=== PATIENT | female | born 1990 | race African-American/Black ===

== ENCOUNTER 2021-05-26 10:22 | Emergency (ER) | payer MEDICAID, SELFPAY ==
[2021-05-26 10:39] VITALS: BP 114/80; PULSE 90; RESP 18; TEMP 36.4; O2SAT 99; BMI 29.0
--- NOTE | 2021-05-26 10:48 | ED.EXTPRO ---
HPI - Extremity Problem General Chief complaint: Extremity Problem Stated complaint: L ARM NUMBNESS Time Seen by Provider: 05/26/21 10:48 Source: patient Mode of arrival: ambulatory Limitations: no limitations History of Present Illness HPI Narrative: pain in axilla and numbness into arm only on the left. patient does sleep with the one year old. No fever no redness no swelling. No neck pain MD Complaint: extremity pain Onset (ago): week(s) (2) Pain Consistency: intermittent Location: left Exacerbating factors: other (lifting) Related Data Previous Rx's Medication Instructions Recorded naproxen [Naprosyn] 500 mg PO BID #20 tab 05/26/21 Allergies Allergy/AdvReac Type Severity Reaction Status Date / Time No Known Allergies Allergy Unverified 07/20/20 17:14 bee strings Allergy Unknown anaphylaxis Uncoded 06/06/20 00:00 Review of Systems Constitutional: Constitutional: Reports no additional constitutional complaints Eyes: Eyes: Reports no additional eye complaints ENT: Denies dizziness Cardiovascular: Cardiovascular: Reports no additional cardiovascular complaints Respiratory: Respiratory: Reports as per HPI Gastrointestinal: Gastrointestinal: Reports no additional gastrointestinal complaints Genitourinary: Genitourinary: Reports no additional female genitourinary complaints Musculoskeletal: Musculoskeletal: Reports no additional musculoskeletal complaints Integumentary/Breasts: Skin/Breast: Denies rash Neurologic: Reports system reviewed and no additional complaints, except as documented, Denies dizziness and Denies Sensory deficit (Neuro) Psychiatric: Psychiatric: Denies anxiety PMFSH Past Medical History Medical History No known health problems Family History Family History Mother Family hx of hypertension Hx of cardiovascular disorder Hx of myocardial infarction Maternal Grandmother Hx of diabetes mellitus Hx of cardiovascular disorder Paternal Grandmother History of dementia Maternal Aunt Hx of diabetes mellitus History of breast cancer in female Social History Social History Alcohol intake: never Smoked in Last 30 Days: No Use of substances other than those prescribed or required for medical reasons: No Advance Directives: Yes Advance Directives Information Provided: No Advance Directives on File: No Patient : No Physical Exam Vital Signs: Vital Signs: Last Vital Signs Temp 97.6 F 07/24/21 10:39 Pulse 90 05/26/21 10:39 Resp 18 05/26/21 10:39 BP 114/80 05/26/21 10:39 Pulse Ox 99 05/26/21 10:39 Body Mass Index 29.0 Const: General: healthy appearing Nutritional Appearance: average body habitus Orientation/consciousness: oriented to person and patient oriented x3 Limitations: no limitations HENMT: Head: Yes normal to inspection Ears: external ears normal General nose exam: Normal external nose present Mouth: Normal oral and palatal mucosa present and oropharynx normal Throat: Yes posterior oropharynx normal Eyes: General: appearance normal, both eyes and all related structures Neck: Other: supple Neck: Yes normal visual inspection Chest: Chest palpation & inspection: normal inspection of the chest Resp: Auscultation: clear to auscultation bilaterally Cardio: Jugular venous distension: no JVD Rate: regular rate Rhythm: regular rhythm Heart sounds: S1 normal heart sound present and S2 normal heart sound present GI: Inspection: Yes normal to inspection Palpation (GI): Soft to palpation, nontender and No hepatosplenomegaly present Auscultation: normal bowel sounds : General: Yes no CVA tenderness Back/Spine/Pelvis: Back: no CVA tenderness Skin: General skin exam: no rashes or lesions noted Neuro: General: oriented to person and patient oriented x3 Cranial nerves: Yes CN's II-XII intact bilaterally Motor exam (neuro): 5/5 motor strength present throughout Sensory Exam: No Sensory deficit (Neuro) Extrem: Other: Pain with radiation down arm when palpating left axilla, no redness, no lymphadenopathy, no induration or fluctuance General: Yes normal to inspection Psych: Appearance: grossly normal Course Reevaluation(s) Reevaluation #1: patient with mild brachial plexus injury. Will start NSAIDs and dc home Time: 10:59 Discharge Plan Discharge Clinical Impression: Brachial plexus injury, left Qualifiers: Encounter type: initial encounter Qualified Code(s): S14.3XXA - Injury of brachial plexus, initial encounter Patient Disposition: Home, Self-Care Additional Instructions: return for swelling redness or worsening symptoms Prescriptions: New naproxen [Naprosyn] 500 mg tablet 500 mg PO BID Qty: 20 RF: 0 Referrals: Physician,Unknown [Primary Care Provider] - 1 week
== END 2021-05-26 11:04 | disposition home or self-care (01) ==
PROVIDERS: Emergency Provider Emergency Medicine
DX: S14.3XXA Injury of brachial plexus, initial encounter (principal); X58.XXXA Exposure to other specified factors, initial encounter; R20.0 Anesthesia of skin; Y93.9 Activity, unspecified; Y92.019 Unspecified place in single-family (private) house as the place of occurrence of the external cause; Y99.9 Unspecified external cause status
CPT/HCPCS: 99283; 99284

== ENCOUNTER 2021-07-03 23:59 | Emergency (ER) | payer MEDICAID, SELFPAY ==
[2021-07-04 00:06] VITALS: BP 134/92; PULSE 79; RESP 16; TEMP 36.4; O2SAT 99; BMI 28.2
--- NOTE | 2021-07-04 00:09 | ED_ITS ---
HPI - Fall General Chief Complaint: Fall Stated Complaint: Fall Source: patient Mode of arrival: ambulatory Limitations: no limitations History of Present Illness HPI Narrative: 30-year-old female with no significant past medical history presents with left-sided hip pain and right foot pain after slipping and falling. Stated that she was rushing, landed on her left hip and a brace to her right foot. She does not report hitting her head, losing consciousness, and denies any other symptoms at this time. complaint: fall Onset (ago): hour(s) (Within the hour of arrival) Fall from: standing Fall witnessed: no Place fall occurred: home Loss of consciousness: none Prolonged down time: no Symptoms prior to fall: none Context: tripped/slipped Location of injury - extremities: left: thigh and right: foot Severity: mild Severity scale (1-10): 4 Quality: burning and aching Associated symptoms (after fall): denies Related Data Previous Rx's Medication Instructions Recorded naproxen 500 mg tablet (Naprosyn) 500 mg PO BID #20 tab 05/26/21 cyclobenzaprine 10 mg tablet 10 mg PO TID PRN #10 tab 07/04/21 ibuprofen 600 mg tablet 600 mg PO Q6H PRN #30 tab 07/04/21 Allergies Allergy/AdvReac Type Severity Reaction Status Date / Time No Known Allergies Allergy Unverified 07/20/20 17:14 bee strings Allergy Unknown anaphylaxis Uncoded 06/06/20 00:00 Review of Systems Review of Systems: Constitutional: No Fever, No Chills ENT/Mouth: No Ear Pain, No Hoarseness, No sore throat Eyes: No Eye Pain, No Swelling, No Redness, No Foreign Body Cardiovascular: No Chest Pain, No SOB Respiratory: No Cough, No Dyspnea Gastrointestinal: No Nausea, No Vomiting, No Diarrhea, No abdominal Pain Genitourinary: No Dysuria, No Hematuria Musculoskeletal: positive left hip and right foot pain, No Myalgias, No Joint Swelling Skin: No Skin lacerations, No rash Neuro: No Weakness, No Numbness, No Paresthesias, No Loss of Consciousness, No Dizziness, No Headache Psych: No Anxiety/Panic, No Depression Heme/Lymph: no easy bruising, no Lymphadenopathy Endocrine: No Polyuria, No Polydipsia Yes all other systems are reviewed and are negative [facility] Past Medical History Attestation statement: The following information was validated with the patient. Source: old records reviewed Medical History No known health problems Family History Family History Mother Family hx of hypertension Hx of cardiovascular disorder Hx of myocardial infarction Maternal Grandmother Hx of diabetes mellitus Hx of cardiovascular disorder Paternal Grandmother History of dementia Maternal Aunt Hx of diabetes mellitus History of breast cancer in female Social History Social History Alcohol intake: never Advance Directives: No Patient : No Physical Exam Vital Signs: Vital Signs: Last Vital Signs Temp 97.6 F 07/04/21 00:06 Pulse 79 07/04/21 00:25 Resp 20 07/04/21 00:25 BP 120/76 07/04/21 00:25 Pulse Ox 99 07/04/21 00:25 Body Mass Index 28.2 Appearance: Alert. Oriented X3. No acute distress. Eyes: Pupils equal, round and reactive to light. ENT: Pharynx normal. Neck: Normal inspection. Neck supple. CVS: Normal heart rate and rhythm. Pulses normal. Respiratory: No respiratory distress. Breath sounds normal. Abdomen: Soft and nontender. Skin: Abrasion noted to the medial aspect of the right hallux, Skin warm and dry. Normal skin color. Normal skin turgor. Extremities: Full range of motion to all extremities. Minimal tenderness to palpation to the left hip, no abrasions, wounds, or ecchymosis noted. Strength 5/5, brisk capillary refill to all extremities. Neuro: No motor deficit. No sensory deficit. Cranial nerves 2-12 intact. Course Course Course Narrative: 30-year-old female presents with injury sustained from a slip and fall. Landed on her left hip, patient does have full range of motion and and has a well-balanced gait. Does have an abrasion to the right hallux, last Tdap was over 15 years ago. As patient does have full range of motion, no ecchymosis wounds or lesions to the hip, no crepitus, brisk capillary refill in strength 5/5, no indication for x-ray at this time. Does not meet the criteria for [place] ankle for ankle. No vertebral tenderness or step-offs noted. Full range of motion to upper extremities neck and spine. Will provide prescription for muscle relaxer for muscle spasm and Motrin. Patient verbalizes understanding of and agrees to plan of care discharge home. MDM - Fall MDM Narrative Medical decision making narrative: Musculoskeletal strain, hematoma Differential Diagnosis Differential diagnosis: Likely dislocation and fracture Medical Records Attestation: I reviewed the patient's medical records. Discharge Plan Discharge Clinical Impression: Contusion of left hip, Abrasion Patient Disposition: Home, Self-Care Instructions: Abrasion (ED), Hip Contusion (ED) Additional Instructions: You were evaluated for injury sustained from a fall. You have a left hip contusion and a right toe abrasion. We updated your Tdap vaccine. Please use cyclobenzaprine as needed for muscle spasms. This is a muscle relaxer and this medication can reduce reaction time, cause drowsiness, and increased risk for falls. Do not drive or operate machinery while taking this medication. Please use Motrin as needed for pain management. Follow-up with primary care physician as needed. Thank you for choosing this emergency department for evaluation. Please follow-up with primary care physician as needed. Return to the emergency department for any new, concerning, or worsening symptoms. Prescriptions: New ibuprofen 600 mg tablet 600 mg PO Q6H PRN (Reason: pain) Qty: 30 RF: 0 cyclobenzaprine 10 mg tablet 10 mg PO TID PRN (Reason: muscle spasm) Qty: 10 RF: 0 No Action naproxen [Naprosyn] 500 mg tablet 500 mg PO BID Qty: 20 RF: 0 Stand Alone Forms: Work/School Release
[2021-07-04 00:25] VITALS: BP 120/76; PULSE 79; RESP 20; O2SAT 99
[2021-07-04] MEDS: Ibuprofen 600 MG TABLET PO (00:28)
[2021-07-04] MEDS: Diphth,Pertus(ACell),Tet Adult 0.5 ML SYRINGE IM (00:31)
== END 2021-07-04 01:05 | disposition home or self-care (01) ==
PROVIDERS: Emergency Provider Internal Medicine; PCP Nurse Practitioner
DX: S70.01XA Contusion of right hip, initial encounter (principal); S90.411A Abrasion, right great toe, initial encounter; W01.0XXA Fall on same level from slipping, tripping and stumbling without subsequent striking against object, initial encounter; Y93.9 Activity, unspecified; Y92.019 Unspecified place in single-family (private) house as the place of occurrence of the external cause; Y99.9 Unspecified external cause status
CPT/HCPCS: 90471; 90715; 99284

== ENCOUNTER 2021-10-05 15:09 | Outpatient (REF) | payer MEDICAID, SELFPAY | END 2021-10-05 15:10 | disposition home or self-care (01) | LOC: HO.LAB 15:09 | PROVIDERS: PCP Nurse Practitioner; Visit Provider Internal Medicine | DX: Z20.822 Contact with and (suspected) exposure to COVID-19 (principal) | CPT/HCPCS: C9803; U0003; U0005 ==

== ENCOUNTER 2022-05-15 04:21 | Emergency (ER) | payer MEDICAID, SELFPAY ==
[2022-05-15 04:43] VITALS: BP 116/72; PULSE 72; RESP 16; TEMP 36.8; O2SAT 100; BMI 27.4
== END 2022-05-15 06:47 | disposition left against medical advice (07) ==
PROVIDERS: Emergency Provider Emergency Medicine
DX: M25.512 Pain in left shoulder (principal)
CPT/HCPCS: 99281

== ENCOUNTER 2022-08-25 07:42 | Emergency (ER) | payer MEDICAID, SELFPAY ==
--- NOTE | ~2022-08-25 | XR_ITS ---
EXAMINATION: XR SHOULDER, LEFT CLINICAL INFORMATION: Pain radiating down arm COMPARISON: None TECHNIQUE: Three views of the left shoulder. FINDINGS: The bones and soft tissues are normal. No fracture. Glenohumeral and acromioclavicular alignment is anatomic with normal joint space. No abnormal soft tissue calcifications. XR/XR shoulder LT min 2V IMPRESSION: No significant left shoulder abnormality appreciated.
[2022-08-25 07:45] VITALS: BP 142/82; PULSE 91; RESP 19; TEMP 36.6; O2SAT 98; BMI 25.8
--- NOTE | 2022-08-25 09:51 | ED_ITS ---
HPI - Extremity Injury (Upper) General Chief Complaint: Upper Respiratory Symptoms Stated Complaint: L shoulder pain rad down arm/pinched nerve? Time Seen by Provider: 08/25/22 09:21 Source: patient Mode of arrival: ambulatory Limitations: no limitations History of Present Illness HPI narrative: 31-year-old female presenting to the ER with complaints of intermittent left shoulder pain for the past 2 months after she had a work related injury. 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 She did not get evaluated that time. Although for the past 2 months she has been having intermittent pain went tingling going down the arm. She reports ?I believe I have a pinched nerve?. She reports it hurts in the scapular region as well. 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 She denies any headaches, neck pain, chest pain, shortness of breath, extremity edema, rashes, fevers, weakness or any other symptoms complaints or concerns at this time. complaint: injury to: left and shoulder Onset (ago): month(s) (2) Other injuries: none Place: work Severity: mild Relieving factors: none Exacerbating factors: movement of extremity Context: other (See above) Associated symptoms: other (Intermittent tingling) Related Data Previous Rx's Medication Instructions Recorded naproxen 500 mg tablet (Naprosyn) 500 mg PO BID #20 tabs 05/26/21 cyclobenzaprine 10 mg tablet 10 mg PO TID PRN muscle spasm #10 07/04/21 tabs ibuprofen 600 mg tablet 600 mg PO Q6H PRN pain #30 tabs 07/04/21 cyclobenzaprine 10 mg tablet 10 mg PO Q8H Muscle strain #14 tabs 08/25/22 naproxen 500 mg tablet 500 mg PO BID PRN pain #14 tabs 08/25/22 Allergies Allergy/AdvReac Type Severity Reaction Status Date / Time No Known Allergies Allergy Unverified 07/20/20 17:14 bee strings Allergy Unknown anaphylaxis Uncoded 06/06/20 00:00 Review of Systems Review of Systems: Constitutional : No Weight loss, No Fever, No Chills, No Night Sweats, No Fatigue, No Malaise ENT/Mouth : No Hearing loss, No Ear Pain, No Nasal Congestion, No Sinus Pain, No Hoarseness, No sore throat, No Rhinorrhea, No Swallowing Difficulty Eyes: No Eye Pain, No Swelling, No Redness, No Foreign Body, No Discharge, No Vision Changes Cardiovascular : No Chest Pain, No SOB, No Dyspnea on Exertion, No Orthopnea, No Edema, No Palpitations Respiratory : No Cough, No Sputum, No Wheezing, No Smoke Exposure, No Dyspnea Gastrointestinal : No Nausea, No Vomiting, No Diarrhea, No Constipation, No abdominal Pain, No Hematochezia, No Melena Genitourinary : no irregular bleeding, No Dysuria, No Urinary Frequency, No Hematuria, No Urinary Incontinence, No Urgency, No Flank Pain, No Urinary Flow Changes, No Hesitancy Musculoskeletal : + left shoulder joint pain, No Myalgias, No Joint Swelling Skin : No Skin Lesions, No rash Neuro : + intermittent tingling to left shoulder, No Weakness, No Loss of Consciousness, No Dizziness, No Headache Psych : No Anxiety/Panic, No Depression, No SI/HI/AH/VH, No Social Issues, Heme/Lymph: No Bruising, No Bleeding,No Lymphadenopathy Endocrine : No Polyuria, No Polydipsia, No Temperature Intolerance Yes all other systems are reviewed and are negative [facility] Past Medical History Attestation statement: The following information was validated with the patient. Source: old records reviewed and nursing notes reviewed Medical History No known health problems Family History Family History Mother Family hx of hypertension Hx of cardiovascular disorder Hx of myocardial infarction Maternal Grandmother Hx of diabetes mellitus Hx of cardiovascular disorder Paternal Grandmother History of dementia Maternal Aunt Hx of diabetes mellitus History of breast cancer in female Social History Social History Alcohol intake: never Advance Directives: No Advance Directives Information Provided: No Physical Exam Vital Signs: Vital Signs: Last Vital Signs Temp 98 F 08/25/22 07:45 Pulse 91 08/25/22 07:45 Resp 19 08/25/22 07:45 BP 142/82 H 08/25/22 07:45 Pulse Ox 98 08/25/22 07:45 O2 Del Method 08/25/22 07:45 BMI result Body Mass Index 25.8 vital signs have been reviewed as normal and appeared to be correct. Blood pre ssure 142/82 Heart rate normal. Respiration rate normal. Temperature normal. Oxygen saturation normal. Appearance: Alert. Oriented X3. No acute distress. Head: Normal external exam. Normocephalic. Atraumatic. Eyes: PERRLA. EOMI. Conjunctiva and sclera normal. Eyelids normal. ENT: Pharynx normal. Uvula midline. Moist mucous membranes. Neck: Normal inspection. Neck supple. FROM. CVS: Normal heart rate and rhythm. Respiratory: No respiratory distress. Painless inspiration. Skin: Skin warm and dry. Normal skin color. Normal skin turgor. No rashes/lesions/lacerations noted. Extremities: Patient mild tenderness palpation to the left AC and left scapular region. No obvious deformities are noted. Although she reports pain with abduction of the left shoulder lateral rotation medial rotation and flexion of the left shoulder along with hyper extension. Otherwise she has full range of motion. No obvious ligamentous or tendon injury noted. Otherwise all other extremities exhibit normal range of motion nontender. Neuro: Oriented X 3. No motor deficit. No sensory deficit. Reflexes normal. Normal steady gait. No focal neuro deficits noted. Vascular: + radial pulses/+ 2 distal pedal pulses/+2 dorsalis pedis b/l. Normal cap refill. No cyanosis noted to upper extremity nails and lower extremity toes nails. Course Course Course Narrative: 31-year-old female presenting with work related injury that happened 2 months ago she was not evaluated although she has been having pain for the past 2 months intermittently with tingling to the left shoulder/scapular region. Denies any dizziness, neck pain, chest pain or shortness of breath or any other symptoms complaints or concerns. On exam there are no obvious deformities. X- ray obtained and negative for any acute processes. Therefore at this time will place in a sling and treat symptomatic and instructed follow-up with PCP and if symptoms persist that she can also follow-up with orthopedics in the near future. Otherwise return if any new or worsening symptoms. Patient understands agrees with this plan. MDM - Extremity Injury (Upper) Medical Records Attestation: I reviewed the patient's medical records. Imaging Data Left shoulder x-ray: Attestation: I personally reviewed and interpreted this imaging study as follows: Radiologist's impression: FINDINGS: The bones and soft tissues are normal. No fracture. Glenohumeral and acromioclavicular alignment is anatomic with normal joint space. No abnormal soft tissue calcifications.? XR/XR shoulder LT min 2V IMPRESSION: No significant left shoulder abnormality appreciated. Procedures Orthopedic Splinting/Casting Injury #1: Side: left Upper Extremity Injury Location: shoulder Upper Extremity Immobilizer: sling/shoulder immobilizer Discharge Plan Discharge Clinical Impression: Muscle strain of left scapular region, Strain of left shoulder, Muscle strain of left shoulder region, Work related injury Patient Disposition: Home, Self-Care Instructions: Muscle Strain (ED), Rotator Cuff Injury Exercises (DC), Shoulder Immobilizer (ED) Prescriptions: New naproxen 500 mg tablet 500 mg PO BID PRN (Reason: pain) Qty: 14 0RF cyclobenzaprine 10 mg tablet 10 mg PO Q8H Qty: 14 0RF No Action naproxen [Naprosyn] 500 mg tablet 500 mg PO BID Qty: 20 0RF ibuprofen 600 mg tablet 600 mg PO Q6H PRN (Reason: pain) Qty: 30 0RF cyclobenzaprine 10 mg tablet 10 mg PO TID PRN (Reason: muscle spasm) Qty: 10 0RF [place] [facility] [place] [facility] [place] [facility] [place]Provider Group] (call to make a follow up appointment as needed if symptoms persist ) [facility] [Provider Group] (or work connection for your job in the next week you should follow up) [facility] [Primary Care Provider] - 2 days Stand Alone Forms: Work/School Release Interventions: ED Discharge Assessment Last Done: 08/25/22 10:20 Discharge Date/Time: 08/25/22 10:21 Print Language: [place]
== END 2022-08-25 10:21 | disposition home or self-care (01) ==
PROVIDERS: Emergency Provider Emergency Medicine; PCP Nurse Practitioner
DX: S46.912A Strain of unspecified muscle, fascia and tendon at shoulder and upper arm level, left arm, initial encounter (principal); X50.0XXA Overexertion from strenuous movement or load, initial encounter; Y93.9 Activity, unspecified; Y92.9 Unspecified place or not applicable; Y99.0 Civilian activity done for income or pay; Z79.899 Other long term (current) drug therapy
CPT/HCPCS: 29105; 73030; 99283

== ENCOUNTER 2023-01-08 03:29 | Emergency (ER) | payer MEDICAID, SELFPAY ==
--- NOTE | ~2023-01-08 | US_ITS ---
EXAMINATION: US OBSTETRICAL ULTRASOUND CLINICAL INFORMATION: 9 week with pelvic pain and question of ectopic COMPARISON: None. LMP: 11/06/2022. Gestational age by maternal dates is 9 weeks 0 days. Estimated date of delivery by maternal dates is 09/13/2023. TECHNIQUE: Transabdominal scanning was performed FINDINGS: There is a single intrauterine gestational sac with visible yolk sac, embryo/fetus, and cardiac activity. There is no significant subchorionic hemorrhage or hematoma. HR: 183 beats per minute. CRL (crown rump length): 2.51 cm (9 weeks 2 days +/- 4 days). SOFY (estimated date of delivery): 08/11/2023 +/- 4 days. MATERNAL ADNEXA: The right maternal ovary measures 2.9 x 2.3 x 2.0 cm. The left maternal ovary measures 4.4 x 2.5 x 2.4 cm. A corpus luteal cyst is present. There is no significant maternal adnexal mass. No maternal pelvic ascites. US/US OB <= 14 weeks fetus IMPRESSION: 1. Single intrauterine gestation with ultrasound gestational age of 9 weeks 2 days +/- 4 days. 2. Estimated date of delivery is 08/11/2023 +/- 4 days. 3. No maternal adnexal mass or pelvic ascites.
[2023-01-08 03:52] VITALS: BP 114/82; PULSE 94; RESP 18; TEMP 36.4; O2SAT 100; BMI 25.8
[2023-01-08 05:32] LABS: MANUAL DIFF FLAG NO
[2023-01-08 05:33] LABS: Basophils Percent Auto 0.6 % (0-2); Eosinophils Absolute Auto 0.1 X10*3/uL (0.0-0.4); Eosinophils Percent Auto 1.5 % (0-4); Hematocrit 32.2 % (37.0-47.0); Hemoglobin 10.1 g/dl (12.0-16.0); Imm Gran Abs Auto 0.02 X10*3/uL (0.00-0.03); Imm Gran Pct Auto 0.4 % (0.0-0.4); Lymphocytes Absolute Auto 1.4 X10*3/uL (1.2-4.9); Lymphocytes Percent Auto 25.5 % (20-40); Mean Corpuscular HGB Conc 31.4 g/dl (31.0-35.0); Mean Corpuscular Hemoglobin 24.7 pg (27.0-33.0); Mean Corpuscular Volume 78.7 fL (80.0-98.0); Mean Platelet Volume 10.6 fL (9.4-12.3); Monocytes Absolute Auto 0.4 X10*3/uL (0.1-1.2); Monocytes Percent Auto 7.6 % (2-11); Neutrophils Absolute Auto 3.4 x10*3/uL (2.0-8.3); Neutrophils Percent Auto 64.4 % (45-73); Platelet Count 141 X10*3/uL (160-400); Red Blood Count 4.09 X10*6/uL (4.20-5.50); Red Cell Distribution Width 18.7 % (11.0-16.0); White Blood Count 5.3 X10*3/uL (4.8-10.8)
[2023-01-08 05:35] LABS: Appearance Urine Clear; Color Urine Yellow; Glucose Urine UA Negative (Negative); Leukocyte Esterase Urine Negative (Negative); Nitrite Urine Negative (Negative); Specific Gravity - Urine >= 1.030 (1.005-1.025); Urine Blood Negative (Negative); Urine Ketones 40 mg/dL (Negative); Urine Protein Trace mg/dL (Neg-Trace)
[2023-01-08 05:36] LABS: Urine Pregnancy POSITIVE (NEGATIVE)
[2023-01-08 05:37] LABS: UPreg QC Valid YES
[2023-01-08 06:00] LABS: Alanine Aminotransferase 10 U/L (0-31); Albumin Level 4.5 g/dL (3.5-5.0); Alkaline Phosphatase 49 U/L (39-117); Anion Gap 15 (12-20); Aspartate Amino Transferase 15 U/L (5-31); Bilirubin Total 0.7 mg/dL (0.0-1.0); Blood Urea Nitrogen 12 mg/dL (9-16); Calcium 9.2 mg/dL (8.4-10.2); Carbon Dioxide 22 mmol/L (22-29); Chloride 104 mmol/L (96-108); Creatinine Clr Calc Pharmacy 120.4; Estimated Glomerular Filt Rate > 60; Glucose Random 93 mg/dL (60-115); Potassium 3.7 mmol/L (3.3-5.1); Sodium 137 mmol/L (135-145); Total Protein 7.3 g/dL (6.5-8.0)
[2023-01-08 06:07] VITALS: BP 127/76; PULSE 82; RESP 16; O2SAT 100
--- NOTE | 2023-01-08 06:33 | PC.NURSE ---
Pt A&Ox4, reports intermittent 7/10 left lower pelvic pain. States she has been getting morning nausea but now more often with vomiting x 3 days thorough the day. Denies diarrhea. Reports last BM was today, denies any urinary burning/pain. No ABD tenderness. + bowel sounds x 4.
--- NOTE | 2023-01-08 06:53 | ED_ITS ---
HPI - Abdominal Pain General Chief Complaint: Abdominal Pain Stated Complaint: 9weeks abd pain left side/very weak Time Seen by Provider: 01/08/23 06:45 History of Present Illness HPI narrative: Patient is a 32-year-old female who presents today with having lower abdominal pain worse in the left side patient last menstrual period was November 06. She claims she is approximately 9 weeks . Has not had any ultrasound done for this . No vaginal bleeding. No fever no chills. Patient is . No coughing or congestion or upper respiratory symptoms. No systemic complaints. No nausea no vomiting. Related Data Previous Rx's Medication Instructions Recorded naproxen 500 mg tablet (Naprosyn) 500 mg PO BID #20 tabs 05/26/21 cyclobenzaprine 10 mg tablet 10 mg PO TID PRN muscle spasm #10 07/04/21 tabs ibuprofen 600 mg tablet 600 mg PO Q6H PRN pain #30 tabs 07/04/21 cyclobenzaprine 10 mg tablet 10 mg PO Q8H Muscle strain #14 tabs 08/25/22 naproxen 500 mg tablet 500 mg PO BID PRN pain #14 tabs 08/25/22 Allergies Allergy/AdvReac Type Severity Reaction Status Date / Time No Known Allergies Allergy Verified 01/08/23 03:54 bee strings Allergy Unknown anaphylaxis Uncoded 01/08/23 03:54 Review of Systems Review of Systems Positive abdominal pain in the left lower quadrant Yes all other systems are reviewed and are negative PMFSH Past Medical History Attestation statement: The following information was validated with the patient. Medical History No known health problems Family History Family History Mother Family hx of hypertension Hx of cardiovascular disorder Hx of myocardial infarction Maternal Grandmother Hx of diabetes mellitus Hx of cardiovascular disorder Paternal Grandmother History of dementia Maternal Aunt Hx of diabetes mellitus History of breast cancer in female Social History Social History Alcohol intake: never Smoked in Last 30 Days: No Use of substances other than those prescribed or required for medical reasons: No Advance Directives: No Advance Directives Information Provided: Yes Patient : Yes Physical Exam ED Vital Signs: Vital Signs - 24 hr 01/08/23 03:52 01/08/23 06:07 01/08/23 08:26 Temperature 97.6 F 99.2 F Pulse Rate 94 82 74 Respiratory Rate 18 16 16 Blood Pressure 114/82 127/76 110/73 Pulse Oximetry 100 100 100 Oxygen Delivery Method Room Air Room Air Room Air BMI result Body Mass Index 25.8 Appearance: Alert. Oriented X3. No acute distress. Eyes: Pupils equal, round and reactive to light. ENT: Pharynx normal. Neck: Normal inspection. Neck supple. No lymph nodes noted. No crepitus CVS: Normal heart rate and rhythm. Pulses normal. Normal S1 and S2 Respiratory: No respiratory distress. Breath sounds normal. No Wheezing. No rales Abdomen: Soft and nontender. No rigidity. No distention. good BS x4 Skin: Skin warm and dry. Normal skin color. Normal skin turgor. Extremities: No lower extremity edema. Neurovascular intact to all extremities. No Lacerations. No Rash Neuro: Oriented X 3. No motor deficit. No sensory deficit. Moving all extermities. No slurred speech Medical Decision Making Medical Decision Making [facility] Narrative: Patient's quant was over 100,000. Blood type on old medical records showed a blood type of O positive. No ABO incompatibility. An ultrasound was done. The ultrasound shows a intrauterine at approximately 9 weeks. Patient's abdominal pain in the left side most likely secondary to corpus luteal cyst. It is positional. Patient is well appearing no distress. Will discharge patient home. Tylenol for pain. Currently in stable condition. Differential Diagnosis Differential Diagnoses: The differential diagnosis associated with the presentation includes Ectopic , corpus luteal cyst, IUP, miscarriage, ABO incompatibility Admission/Observation Consideration of admission/observation: Escalation of care including admission/ observation considered Lab Data [facility] Lab Attestation statement: I reviewed the patient's lab results. Patient's old chart was also reviewed. Patient's previous blood type was O positive. There is no Rh incompatibility. 01/08/23 05:28 01/08/23 05:28 Labs: Lab Results 01/08/23 01/08/23 01/08/23 Range/Units 05:22 05:22 05:28 WBC 5.3 (4.8-10.8) X10*3/uL RBC 4.09 L (4.20-5.50) X10*6/uL Hgb 10.1 L (12.0-16.0) g/dl Hct 32.2 L (37.0-47.0) % MCV 78.7 L (80.0-98.0) fL MCH 24.7 L (27.0-33.0) pg MCHC 31.4 (31.0-35.0) g/dl RDW 18.7 H (11.0-16.0) % Plt Count 141 L (160-400) X10*3/uL MPV 10.6 (9.4-12.3) fL Immature Gran % (Auto) 0.4 (0.0-0.4) % Neut % (Auto) 64.4 (45-73) % Lymph % (Auto) 25.5 (20-40) % Upson % (Auto) 7.6 (2-11) % Eos % (Auto) 1.5 (0-4) % Baso % (Auto) 0.6 (0-2) % Lymph # (Auto) 1.4 (1.2-4.9) X10*3/uL Upson # (Auto) 0.4 (0.1-1.2) X10*3/uL Eos # (Auto) 0.1 (0.0-0.4) X10*3/uL Baso # (Auto) 0.0 (0.0-0.2) X10*3/uL Abs Immat Gran (auto) 0.02 (0.00-0.03) X10*3/uL Absolute Neuts (auto) 3.4 (2.0-8.3) x10*3/uL Absolute Nucleated RBC 0.000 (0.0-0.012) X10*3/uL Nucleated RBC % (auto) 0.0 (0.0-0.2) /100WBC Sodium (135-145) mmol/L Potassium (3.3-5.1) mmol/L Chloride (96-108) mmol/L Carbon Dioxide (22-29) mmol/L Anion Gap (12-20) BUN (9-16) mg/dL Creatinine (0.5-1.4) mg/dL Estim Creat Clear Calc Estimated GFR Random Glucose (60-115) mg/dL Calcium (8.4-10.2) mg/dL Total Bilirubin (0.0-1.0) mg/dL AST (5-31) U/L ALT (0-31) U/L Alkaline Phosphatase (39-117) U/L Total Protein (6.5-8.0) g/dL Albumin (3.5-5.0) g/dL Beta HCG, Quant mIU/mL Urine Color Yellow Urine Appearance Clear Urine pH 6.0 (5.0-9.0) Ur Specific Newport >= 1.030 H (1.005-1.025) Urine Protein Trace (Neg-Trace) mg/dL Urine Glucose (UA) Negative (Negative) mg/dL Urine Ketones 40 (Negative) mg/dL Urine Blood Negative (Negative) Urine Nitrite Negative (Negative) Ur Leukocyte Esterase Negative (Negative) Urine Test POSITIVE H (NEGATIVE) 01/08/23 Range/Units 05:28 WBC (4.8-10.8) X10*3/uL RBC (4.20-5.50) X10*6/uL Hgb (12.0-16.0) g/dl Hct (37.0-47.0) % MCV (80.0-98.0) fL MCH (27.0-33.0) pg MCHC (31.0-35.0) g/dl RDW (11.0-16.0) % Plt Count (160-400) X10*3/uL MPV (9.4-12.3) fL Immature Gran % (Auto) (0.0-0.4) % Neut % (Auto) (45-73) % Lymph % (Auto) (20-40) % Upson % (Auto) (2-11) % Eos % (Auto) (0-4) % Baso % (Auto) (0-2) % Lymph # (Auto) (1.2-4.9) X10*3/uL Upson # (Auto) (0.1-1.2) X10*3/uL Eos # (Auto) (0.0-0.4) X10*3/uL Baso # (Auto) (0.0-0.2) X10*3/uL Abs Immat Gran (auto) (0.00-0.03) X10*3/uL Absolute Neuts (auto) (2.0-8.3) x10*3/uL Absolute Nucleated RBC (0.0-0.012) X10*3/uL Nucleated RBC % (auto) (0.0-0.2) /100WBC Sodium 137 (135-145) mmol/L Potassium 3.7 (3.3-5.1) mmol/L Chloride 104 (96-108) mmol/L Carbon Dioxide 22 (22-29) mmol/L Anion Gap 15 (12-20) BUN 12 (9-16) mg/dL Creatinine 0.69 (0.5-1.4) mg/dL Estim Creat Clear Calc 120.4 Estimated GFR > 60 Random Glucose 93 (60-115) mg/dL Calcium 9.2 (8.4-10.2) mg/dL Total Bilirubin 0.7 (0.0-1.0) mg/dL AST 15 (5-31) U/L ALT 10 (0-31) U/L Alkaline Phosphatase 49 (39-117) U/L Total Protein 7.3 (6.5-8.0) g/dL Albumin 4.5 (3.5-5.0) g/dL Beta HCG, Quant 158216 mIU/mL Urine Color Urine Appearance Urine pH (5.0-9.0) Ur Specific Newport (1.005-1.025) Urine Protein (Neg-Trace) mg/dL Urine Glucose (UA) (Negative) mg/dL Urine Ketones (Negative) mg/dL Urine Blood (Negative) Urine Nitrite (Negative) Ur Leukocyte Esterase (Negative) Urine Test (NEGATIVE) Independent Interpretation I performed an independent interpretation of an: Ultrasound External Record Review External record reviewed: Inpatient record Patient's blood type is O-positive Discharge Plan Discharge Clinical Impression: Patient Disposition: Home, Self-Care Instructions: at 7 to 10 Weeks (ED) Additional Instructions: Please follow-up with Domonique DOTSON . Prescriptions: No Action naproxen [Naprosyn] 500 mg tablet 500 mg PO BID Qty: 20 0RF ibuprofen 600 mg tablet 600 mg PO Q6H PRN (Reason: pain) Qty: 30 0RF cyclobenzaprine 10 mg tablet 10 mg PO TID PRN (Reason: muscle spasm) Qty: 10 0RF naproxen 500 mg tablet 500 mg PO BID PRN (Reason: pain) Qty: 14 0RF cyclobenzaprine 10 mg tablet 10 mg PO Q8H Qty: 14 0RF Referrals: Physician,Unknown J [Physician] - (Please follow-up with Domonique DOTSON in the next few days.)
[2023-01-08 08:26] VITALS: BP 110/73; PULSE 74; RESP 16; TEMP 37.3; O2SAT 100
[2023-01-08 08:33] LABS: HCG Quantitative 100387 mIU/mL
== END 2023-01-08 09:07 | disposition home or self-care (01) ==
PROVIDERS: Emergency Provider Emergency Medicine Emergency Medical Services
DX: O26.891 Other specified pregnancy related conditions, first trimester (principal); Z3A.09 9 weeks gestation of pregnancy; R10.30 Lower abdominal pain, unspecified; R53.1 Weakness
CPT/HCPCS: 36415; 76801; 80053; 81003; 81025; 84702; 85025; 99284

== ENCOUNTER 2024-06-09 12:58 | Outpatient (REF) | payer MEDICAID, SELFPAY ==
--- NOTE | ~2024-06-09 | US_ITS ---
EXAMINATION: US SOFT TISSUE NECK CLINICAL INFORMATION: Lymphadenitis, acute, tenderness, pain. COMPARISON: CT abdomen pelvis 12/05/2016. TECHNIQUE: Ultrasound of the neck soft tissues is performed with high- frequency hyatt-scale imaging and color Doppler. FINDINGS: Targeted grayscale and color ultrasonography is performed by the technologist infectious disease at the areas of concern. At a location designated hairline right posterior cervical neck area of pain, a 1.3 cm x 0.6 cm x 0.9 cm reniform hypoechoic focus is identified with no measurable internal flow on color or power Doppler interrogation. This finding resides within the subcutaneous fat. No adjacent soft tissue inflammatory changes identified. The absence of a fatty hilum is a borderline finding which may indicate reactive changes. No abnormal enlargement of this presumed lymph node noted. A second location labeled right posterior cervical neck area of pain, a 1.37 x 0.17 x 0.3 cm reniform focus with a central fatty hilum suggestive of a normal-appearing lymph node is identified with minimal hilar flow noted on color Doppler interrogation. This finding resides within the subcutaneous fat. US/US soft tiss head and/or neck IMPRESSION: Two subcutaneous lymph nodes identified in the posterior cervical region at the area of self-identified concern. Both lymph nodes are normal in size weighing against malignant lymphadenopathy. One lymph node demonstrates minimally decreased conspicuity of the expected fatty hilum which may indicate slight increase in size of the lymph juan carlos follicles indicating mild reactive lymphadenopathy.
== END 2024-06-09 12:59 | disposition home or self-care (01) ==
LOC: HO.US 12:58
PROVIDERS: Visit Provider Emergency Medicine
DX: M54.2 Cervicalgia (principal); R51.9 Headache, unspecified; L04.9 Acute lymphadenitis, unspecified
CPT/HCPCS: 76536

== ENCOUNTER 2024-12-22 08:22 | Outpatient (REF) | payer OTHER, SELFPAY ==
--- NOTE | ~2024-12-22 | US_ITS ---
EXAMINATION: US TRIPLEX UPPER EXTREMITY, LEFT CLINICAL INFORMATION: Pain, left upper extremity. COMPARISON: None available. TECHNIQUE: Color-flow triplex imaging with spectral analysis and compression Doppler was performed on the left upper extremity. FINDINGS: The left internal jugular, subclavian, and axillary veins are patent and free of thrombus. The imaged segment of the left brachiocephalic vein is patent. Spectral doppler waveforms are normal. The brachial, basilic, cephalic, radial, and ulnar veins are patent and compressible. US/US venous duplex UE LT IMPRESSION: No acute deep venous thrombosis involving the left upper extremity. Negative exam.. Electronically signed by: Good Neri MD 12/22/2024 09:10 AM EST
--- OUTSIDE RECORDS SUMMARY | 2024-12-22 08:26 | XMS_ITS | Clinical Summary ---
Author Organization [facility] Address [address] [place] [address] Phone Care Team Providers Care Astronomy Instructor Name Role Phone Alejandra Degroot RN Primary Care Provider Medical History Medical History Date Comments History of placenta previa DX:Hi story of placenta previa Thrombocytopenia affecting p regnancy ([facility]) 02/04/2023 DX:Thrombocytopenia affectin g ([facility]); COMMENT: 06/05: Plt in [facility] ER 92 Monthly CBC CBC at 36-37 weeks to assess if treatment is needed for delivery History in previous Normal Plt 157 at intake In 2019 was unable to have epidural, normal QBL 06/02/2023- Plt- 104,000- repeat 1 week 07/30- collected- pending Breast lump 02/06/2023 DX:Breast lump; COMMENT: Right breast; scheduled for mammogram on 02/27/23 04/22/2023: Normal U/S right corresponds with non suspicious lymph node Family History Medical History Relation Name Comments Diabetes Maternal Grandmother Other: blocked artery in heart- surgically fixed Mater nal Grandmother Hypertension Mother Dementia Paternal Grandmother Relation Name Status Comments Brother Alive Father not in touch Alive Maternal Grandfather Maternal Grandmother Mother Alive Paternal Grandfather Paternal Grandmother Sister Alive Social History Tobacco Use Types Packs/Day Years Used Date Smoking Tobacco: Never Smokeless Tobacco: Never Alcohol Use Standard Drinks/Week Comments Not Currently 0 (1 standard drink = 0.6 oz pur e alcohol) Comments Unknown Sex and Gender Information Value Date Recorded Sex Assigned at Not on file Legal Sex Female 9:48 AM EST Gender Identity Not on file Sexual Orientation Not on file Obstetrics History Last Filed Vital Signs Vital Sign Reading Time Taken Comments Blood Pressure 102/64 10/07/2023 10:14 AM EST Pulse 69 10/07/2023 10:14 AM EST Temperature - - Respiratory Rate - - Oxygen Saturation - - Inhaled Oxygen Concentration - - Weight 76.9 kg (169 lb 9.6 oz) 10/07/2023 10:14 AM EST Height 167.6 cm (5' 6 ) 07/30/2023 11:21 AM EDT Body Mass Index 27.37 07/30/2023 11:21 AM EDT Plan of Treatment Health Maintenance Due Date Last Done Comments Hepatitis B Vaccines (1 of 3 - 19+ 3-dose series) 2010 Depression Screening 10/01/2022 HIV Screening 10/01/2022 Hepatitis C Screening 10/01/2022 Social Influencers of Health Screening 10/01/2022 COVID-19 Vaccine ( - 2023-2 5 season) 2024 Influenza Vaccine (#1) 2024 Cervical Cancer Screening: P ap Smear 03/25/2026 03/25/2023 DTaP,Tdap,and Td Vaccines (2 - Td or Tdap) 06/02/2033 06/02/2023 HIB Vaccines Aged Out No longer eligi ble based on patient's age to complete this topic HPV Vaccines Aged Out No longer eligi ble based on patient's age to complete this topic Hepatitis A Vaccines Aged Out No long er eligible based on patient's age to complete this topic IPV Vaccines Aged Out No longer eligi ble based on patient's age to complete this topic MMR Vaccines Aged Out No longer eligi ble based on patient's age to complete this topic Meningococcal ACWY Vaccine Aged Out N o longer eligible based on patient's age to complete this topic Meningococcal B Vacine Aged Out No lo nger eligible based on patient's age to complete this topic Pneumococcal Vaccine: Pediat rics (0 to 5 Years) and At-Risk Patients (6 to 64 Years) Aged Out No longer eligi ble based on patient's age to complete this topic RSV Immunization Patients Un manohar 20 months Aged Out No longer eligible b ased on patient's age to complete this topic Varicella Vaccines Aged Out No longer eligible based on patient's age to complete this topic Procedures Procedure Name Priority Date/Time Associated Diagnosis Comments PAP SMEAR Routine 03/25/2023 from Last 3 Months or Most Recently Relevant to Health Maintenance Results * Pap smear (03/25/2023) 03/25/2023 Narrative HISTORICAL TESTING LAB RESULTING AGENCY - 04/01/2023 2:31 PM EDT [id number] THINPREP PAP, IMAGED: NEGATIVE FOR SQUAMOUS INTRAEPITHELIAL LESION AND MALIGNANCY . FUNGAL ORGANISMS MORPHOLOGICALLY CONSISTENT WITH CYNTHIA SPP. ASHANTI FLORES , CT(ASCP) (CASE ELECTRONICALLY SIGNED 04 01 2023) RESULT OF APTIMA HIGH RISK HPV ASSAY: HIGH RISK HPV: ??NEGATIVE (SEROTYPES 16,18,31,33,35,39,45,51,52,56,58,59,66,68) COMPLETED ON 2023-03-26 ADEQUACY: SATISFACTORY ENDOCERVICAL/TRANSFORMATION ZONE COMPONENT PRESENT. SOURCE: THINPREP PAP HPV ANY DX: ??REFLEX 16 AND 18, CERVICAL, IMAGED CLINICAL INFORMATION: HPV ANY DIAGNOSIS. , PAP HX NEGATIVE, LMP 11/06/22, [Z12.4] Betty Terry [facility] LAB CYTOLOGY ORDERABLES Final Result HISTORICAL TESTING LAB RESULTING AGENCY from Last 3 Months or Most Recently Relevant to Health Maintenance Care Teams Astronomy Instructor Relationship Specialty Start Date End Date Alejandra Degroot RN [address] [place] [id number] PCP - General 07/31/23
== END 2024-12-22 08:23 | disposition home or self-care (01) ==
LOC: HO.US 08:22
PROVIDERS: Visit Provider Internal Medicine
DX: M79.622 Pain in left upper arm (principal)
CPT/HCPCS: 93971

== ENCOUNTER → 2024-12-22 08:24 | Outpatient (BNV) | payer OTHER, SELFPAY | PROVIDERS: Visit Provider Radiology Diagnostic Radiology | DX: M79.602 Pain in left arm (principal) | CPT/HCPCS: 93971 ==